=== PATIENT | male | born 2000 | race Caucasian/White ===

== ENCOUNTER 2024-08-19 09:08 | Emergency (ER) | payer OTHER ==
[2024-08-19] MEDS ORDERED: KETOROLAC 30 MG/ML INJ ONE (09:39)
[2024-08-19] MEDS ORDERED: ONDANSETRON 4 MG/2 ML VIAL ONE ×2 (09:39→15:43)
[2024-08-19] MEDS ORDERED: dexAMETHasone 10 MG/ML VIAL ONE (09:39)
[2024-08-19] MEDS ORDERED: NA CHLORIDE 0.9% 1,000 ML ONE (09:40)
[2024-08-19] MEDS ORDERED: MORPHINE 4 MG/ML SYR ONE ×2 (09:40→15:43)
[2024-08-19] MEDS ORDERED: DIAZEPAM 5 MG TABLET ONE (09:40)
[2024-08-19 10:03] LABS: Absolute Eosinophils 0.1 K/uL (0-0.5); Absolute Lymphocytes (CBC) 1.3 K/uL (0.7-4.9); Absolute Monocytes 0.5 K/uL (0.1-1.3); Absolute Neutrophil 5.1 K/uL (1.8-8.0); Basophils % 0.3 % (0-1.3); Hematocrit 43.5 % (39.6-49.0); Hemoglobin 14.9 g/dL (13.6-17.9); Lymphocytes % 18.8 % (15.3-44.8); MCH 30.4 pg (27.0-35.0); MCHC 34.3 g/dL (32.0-36.0); MCV 88.5 fL (80-100); MPV 9.1 fL (7.6-11.3); Monocytes % 7.2 % (3.3-12.3); Neutrophils % 71.7 % (41.7-73.7); Platelets 192 thou/uL (152-406); RBC Red Blood Cell Count 4.91 M/uL (4.33-5.43); Red Cell Distribution Width 12.8 % (12.1-15.2)
[2024-08-19 10:27] LABS: Albumin 4.2 g/dL (3.4-5.0); Albumin/Globulin Ratio 1.4 (1.1-1.8); Anion Gap 9.1 mEq/L (5.0-15.0); Bilirubin Total 0.4 mg/dL (0.2-1.0); Globulin 2.9 g/dL (2.3-3.5); Potassium 4.1 mEq/L (3.5-5.1); Protein, Total 7.1 g/dL (6.4-8.2)
--- NOTE | 2024-08-19 11:33 | RAD REPORT ---
EXAMINATION: Lumbar Spine Wo Con CLINICAL INDICATION: Male, 24 years old. low back pain TECHNIQUE: Multiplanar multisequence MR images were obtained of the lumbar spine without intravenous contrast. Unless otherwise specified, incidental findings do not require dedicated imaging follow-up. [id number]. COMPARISON: No prior exam. FINDINGS: For purposes of this dictation, it is assumed that there are 5 non rib-bearing lumbar type vertebrae, and the most caudal fully segmented lumbar vertebra is labeled L5. ALIGNMENT: The lumbar spine has normal alignment. BONE: Vertebral bodies are normal in height. There is a normal marrow signal pattern. CORD: No abnormal signal in the cord. The conus medullaris terminates at a normal level. The nerve ro ots of the cauda equina appear normal. SOFT TISSUE: The included paraspinal soft tissues and retroperitoneal structures are grossly normal. EVALUATION OF THE INDIVIDUAL LEVELS: L1-L2 :Disc is normal in height and signal intensity. No significant spinal canal or neural foraminal stenosis. L2-L3: Disc is normal in height and signal intensity. No significant spinal canal or neural foraminal stenosis. L3-L4: Disc is normal in height and signal intensity. No significant spinal canal or neural foraminal stenosis. L4-L5: Disc is normal in height and signal intensity. No significant spinal canal or neural foramina l stenosis. L5-S1: Left subarticular zone disc protrusion which effaces the epidural fat on the left and likely c ompresses the traversing left L5 nerve root. No central spinal stenosis. The neural foramina are adequate cervical. Mild facet hypertrophy. IMPRESSION: Left subarticular zone disc protrusion with effacement of the epidural fat at L5-S1 likely compresses the left S1 nerve root and presumably is the source of the patient's symptoms.
--- NOTE | 2024-08-19 12:03 | EDPHYS ---
Physician Documentation [facility] Name: Elia Archer Age: 24 yrs Sex: Male : 2000 Arrival Date: 08/19/2024 Time: 09:08 Bed 15 Private MD: Tyrese Anderson HPI: 08/19 10:02 This 24 yrs old Male presents to ER via Wheelchair with complaints of Back Pain - LOWER.roz 10:02 The patient presents with pain that is acute. The symptoms are located in the low back. roz Onset: The symptoms/episode began/occurred 3 day(s) ago. The pain does not radiate. Associated signs and symptoms: The patient has no apparent associated signs or symptoms. The problem was sustained playing sports. Modifying factors: The patient symptoms are alleviated by nothing, remaining still, the patient symptoms are aggravated by any movement. Severity of symptoms: At their worst the symptoms were. The patient has not experienced similar symptoms in the past. Historical: - Allergies: :43 No Known Allergies; iw - Home Meds: :43 None [Active]; iw - PMHx: :43 None; iw - PSHx: :43 None; iw - Immunization history:: Adult Immunizations not up to date. - Infectious Disease History:: Denies. - Social history:: Smoking status: Reported history of juuling and/or vaping. ROS: 10:04 Constitutional: Negative for fever, chills, and weight loss, Eyes: Negative for injury, roz pain, redness, and discharge, ENT: Negative for injury, pain, and discharge, Neck: Negative for injury, pain, and swelling, Cardiovascular: Negative for chest pain, palpitations, and edema, Respiratory: Negative for shortness of breath, cough, wheezing, and pleuritic chest pain, Abdomen/GI: Negative for abdominal pain, nausea, vomiting, diarrhea, and constipation, : Negative for injury, bleeding, discharge, and swelling, MS/Extremity: Negative for injury and deformity, Skin: Negative for injury, rash, and discoloration, Neuro: Negative for headache, weakness, numbness, tingling, and seizure, Psych: Negative for depression, anxiety, suicide ideation, homicidal ideation, and hallucinations, Allergy/Immunology: Negative for hives, rash, and allergies, Endocrine: Negative for neck swelling, polydipsia, polyuria, polyphagia, and marked weight changes, Hematologic/Lymphatic: Negative for swollen nodes, abnormal bleeding, and unusual bruising, 10:04 Back: Positive for injury or acute deformity, decreased range of motion, pain with movement, radiated pain, Exam: 10:04 Constitutional: This is a well developed, well nourished patient who is awake, alert, roz and in no acute distress. Head/Face: Normocephalic, atraumatic. Eyes: Pupils equal round and reactive to light, extra-ocular motions intact. Lids and lashes normal. Conjunctiva and sclera are non-icteric and not injected. Cornea within normal limits. Periorbital areas with no swelling, redness, or edema. ENT: Nares patent. No nasal discharge, no septal abnormalities noted. Tympanic membranes are normal and external auditory canals are clear. Oropharynx with no redness, swelling, or masses, exudates, or evidence of obstruction, uvula midline. Mucous membranes moist. Neck: Trachea midline, no thyromegaly or masses palpated, and no cervical lymphadenopathy. Supple, full range of motion without nuchal rigidity, or vertebral point tenderness. No Meningismus. Chest/axilla: Normal chest wall appearance and motion. Nontender with no deformity. No lesions are appreciated. Cardiovascular: Regular rate and rhythm with a normal S1 and S2. No gallops, murmurs, or rubs. Normal PMI, no JVD. No pulse deficits. Respiratory: Lungs have equal breath sounds bilaterally, clear to auscultation and percussion. No rales, rhonchi or wheezes noted. No increased work of breathing, no retractions or nasal flaring. Abdomen/GI: Soft, non-tender, with normal bowel sounds. No distension or tympany. No guarding or rebound. No evidence of tenderness throughout. Male : Normal genitalia with no discharge or lesions. Skin: Warm, dry with normal turgor. Normal color with no rashes, no lesions, and no evidence of cellulitis. MS/ Extremity: Pulses equal, no cyanosis. Neurovascular intact. Full, normal range of motion., bilateral aka Neuro: Awake and alert, GCS 15, oriented to person, place, time, and situation. Cranial nerves II-XII grossly intact. Motor strength 5/5 in all extremities. Sensory grossly intact. Cerebellar exam normal. Normal gait. Psych: Awake, alert, with orientation to person, place and time. Behavior, mood, and affect are within normal limits. 10:04 Back: pain, that is moderate, ROM is painful, normal spinal alignment noted, CVA tenderness, is absent, Vital Signs: 09:44 Resp 16; Pulse Ox 98% on R/A; Weight 68.04 kg; Height 5 ft. 11 in. ; Pain 4/10; iw 09:53 BP 141 / 58; Pulse 59; Resp 18; Pulse Ox 100% on R/A; Pain 9/10; ld1 09:53 Temp 97.5(TE); ld1 09:53 Weight 72.57 kg; ld1 09:53 Height 5 ft. 10 in. ; ld1 10:00 BP 123 / 78; Pulse 54; Resp 18; Pulse Ox 100% on R/A; ld1 11:00 BP 99 / 45; Pulse 51; Resp 18; Pulse Ox 99% on R/A; ld1 12:00 BP 109 / 49; Pulse 60; Resp 18; Pulse Ox 98% on R/A; ld1 12:50 BP 125 / 60; Pulse 73; Resp 18; Pulse Ox 99% on R/A; ld1 14:41 BP 126 / 70; Pulse 71; Resp 18; Pulse Ox 99% on R/A; ld1 09:44 Body Mass Index 20.92 (72.57 kg, 177.8 cm) iw 09:44 Pain Scale: Adult iw 09:53 Pain Scale: Adult ld1 MDM: 09:13 Medical Screening Exam initiated roz 10:05 Differential diagnosis: Fatigue Fracture ruptured disc, sprain, vertebral fracture. [facility] Data reviewed: vital signs, nurses notes, lab test result(s), radiologic studies, MRI. Consideration of Admission/Observation Escalation of care including admission/observation considered. I considered the following discharge prescriptions or medication management in the emergency department Medications were administered in the Emergency Department. See MAR. Independent interpretation of the following test(s) in the Emergency Department MRI: My interpretation is mri lumbar spine wo. Care significantly affected by the following chronic conditions: no hx. 08/19 09:16 Order name: CBC with Diff; Complete Time: 11:07 [facility] 08/19 09:16 Order name: CMP; Complete Time: 11: [facility] 08/19 09:16 Order name: UA Rfx Robin Cult if indicated; Complete Time: 12:17 roz 08/19 09:20 Order name: Lumbar Spine Wo Con; Complete Time: 11:55 EDMS Administered Medications: :53 Drug: NS 0.9% IV 1000 ml IV at 1000 ml once; to be given as a bolus over 60 minutes ld1 Route: IV; Rate: 1000 ml; Site: left antecubital; 11:00 Follow up: Response: No adverse reaction; IV Status: Completed infusion; IV Intake: ld1 1000ml 09:53 Drug: Ketorolac IVP 30 mg IVP once Route: IVP; Site: left antecubital; ld1 11:00 Follow up: Response: No adverse reaction ld1 09:53 Drug: Ondansetron IVP 8 mg IVP once; over 2 minutes Route: IVP; Site: left antecubital; ld1 11:00 Follow up: Response: No adverse reaction ld1 09:53 Drug: Diazepam PO 10 mg PO once Route: PO; ld1 11:00 Follow up: Response: No adverse reaction ld1 09:53 Drug: morphine IVP or IV 4 mg IVP once over 4 mins Route: IVP; Infused Over: 4 mins; ld1 Site: left antecubital; 11:00 Follow up: Response: No adverse reaction ld1 09:53 Drug: Decadron - Dexamethasone IVP 10 mg IVP once Route: IVP; Site: left antecubital; ld1 11:00 Follow up: Response: No adverse reaction ld1 15:29 Not Given (Patient Refused): Decadron - [id number] mg IVP once ld1 15:30 Drug: Ondansetron IVP 4 mg IVP once; VERBAL ORDER PER DR TAPIA Route: IVP; Site: ld1 left antecubital; 15:48 Follow up: Response: No adverse reaction ld1 15:30 Drug: morphine IVP or IV 4 mg IVP once over 4 mins; VERBAL ORDER PER DR TAPIA Route: ld1 IVP; Infused Over: 4 mins; Site: left antecubital; 15:49 Follow up: Response: No adverse reaction ld1 15:48 CANCELLED (Duplicate Order): morphineor iv 4 mg IVP once over 4 mins roz 15:48 CANCELLED (Duplicate Order): ondansetron 4 mg IVP once; over 2 minutes roz Disposition Summary: 08/19/24 12:02 Transfer Ordered Notes: Transfer Location: [facility] roz Reason: Higher level of care roz Condition: Stable roz Problem: new roz Symptoms: have improved roz Accepting Physician: TO [facility](08/19/24 15:49) ld1 Diagnosis - Intervertebral disc disorders with radiculopathy, lumbar region - SUBARTICULAR roz L5-S1 DISC PROTUSION, WITH EFFACEMENT - Low back pain - ACUTE roz Forms: - Medication Reconciliation Form roz - SBAR form roz Signatures: Dispatcher [employer] EDTyrese Alanis MD MD cha Williams, Irene, RN RN iw Jany Lechuga RN RN ld1 Corrections: (The following items were deleted from the chart) 15:35 12:02 TO [facility] roz ld1 15:48 15:48 morphine IVP or IV 4 mg IVP once over 4 mins ordered. roz roz 15:48 15:48 Ondansetron IVP 4 mg IVP once; over 2 minutes ordered. roz roz 15:49 15:35 TO [facility] ld1 ld1
--- NOTE | 2024-08-19 12:03 | ER ---
Nurse's Notes [facility] Name: Elia Archer Age: 24 yrs Sex: Male : 2000 Arrival Date: 08/19/2024 Time: 09:08 Bed 15 Private MD: Diagnosis: Intervertebral disc disorders with radiculopathy, lumbar region-SUBARTICULAR L5-S1 DISC PROTUSION, WITH EFFACEMENT;Low back pain-ACUTE Presentation: 08/19 09:38 Chief complaint: Patient states: has had back stiffness for a month , was playing basketball a week ago and twisted wrong , has had severe lower back pain radiating down both legs, left worse than right and weakness in legs since then , Forrest Shah sent to ER for evaluation. Coronavirus screen: At this time, the client does not indicate any symptoms associated with coronavirus-19. Ebola Screen: No symptoms or risks identified at this time. Initial Sepsis Screen: Does the patient meet any 2 criteria? No. Patient's initial sepsis screen is negative. Does the patient have a suspected source of infection? No. Patient's initial sepsis screen is negative. Risk Assessment: Do you want to hurt yourself or someone else? Patient reports no desire to harm self or others. 09:38 Method Of Arrival: Wheelchair iw 09:38 Acuity: WOO 2 iw Historical: - Allergies: 09:43 No Known Allergies; iw - Home Meds: 09:43 None [Active]; iw - PMHx: 09:43 None; iw - PSHx: 09:43 None; iw - Immunization history:: Adult Immunizations not up to date. - Infectious Disease History:: Denies. - Social history:: Smoking status: Reported history of juuling and/or vaping. Screenin:53 [facility] ED Fall Risk Assessment (Adult) History of falling in the last 3 months, ld1 including since admission No falls in past 3 months (0 pts) Confusion or Disorientation No (0 pts) Intoxicated or Sedated No (0 pts) Impaired Gait No (0 pts) Mobility Assist Device Used No (0 pt) Altered Elimination No (0 pt) Score/Fall Risk Level 0 - 2 = Low Risk Oriented to surroundings, Hourly rounding (assess needs \\T\\ fall precautionary measures) done. Abuse screen: Denies threats or abuse. Denies injuries from another. Nutritional screening: No deficits noted. Tuberculosis screening: No symptoms or risk factors identified. Assessment: 09:53 General: Appears in no apparent distress. uncomfortable, Behavior is calm, cooperative, ld1 appropriate for age. Pain: Complains of pain in low back area Pain does not radiate. Pain currently is 9 out of 10 on a pain scale. Quality of pain is described as throbbing, Pain began suddenly, Is continuous. Neuro: Level of Consciousness is awake, alert, obeys commands, Oriented to person, place, time, situation. Cardiovascular: Capillary refill < 3 seconds Patient's skin is warm and dry. Respiratory: Airway is patent Respiratory effort is even, unlabored. GI: Abdomen is flat, non-distended. : No signs and/or symptoms were reported regarding the genitourinary system. EENT: No signs and/or symptoms were reported regarding the EENT system. Derm: No signs and/or symptoms reported regarding the dermatologic system. Musculoskeletal: No signs and/or symptoms reported regarding the musculoskeletal system. 11:00 Reassessment: Patient appears in no apparent distress at this time. No changes from ld1 previously documented assessment. Patient and/or family updated on plan of care and expected duration. Pain level reassessed. 13:36 Reassessment: Patient appears in no apparent distress at this time. No changes from ld1 previously documented assessment. Patient and/or family updated on plan of care and expected duration. Pain level reassessed. 14:15 Reassessment: Attempted to call patient report to [facility] tower 18 room [id number] \\T\\ ld1 . Nurse reports unable to accept report at this time due to room being dirty. Notified nurse we were over 1 hour away from the medical center - Nurse states "Let me reiterate myself, we will not be accepting report the room is still dirty." Asked for nurse name - nurse hung up on me. Notified Desk tech to call transfer center and notify of delay in patient transport to [facility] per Jessica Khan, ER director. Vital Signs: 09:44 Resp 16; Pulse Ox 98% on R/A; Weight 68.04 kg; Height 5 ft. 11 in. ; Pain 4/10; iw 09:53 BP 141 / 58; Pulse 59; Resp 18; Pulse Ox 100% on R/A; Pain 9/10; ld1 09:53 Temp 97.5(TE); ld1 09:53 Weight 72.57 kg; ld1 09:53 Height 5 ft. 10 in. ; ld1 10:00 BP 123 / 78; Pulse 54; Resp 18; Pulse Ox 100% on R/A; ld1 11:00 BP 99 / 45; Pulse 51; Resp 18; Pulse Ox 99% on R/A; ld1 12:00 BP 109 / 49; Pulse 60; Resp 18; Pulse Ox 98% on R/A; ld1 12:50 BP 125 / 60; Pulse 73; Resp 18; Pulse Ox 99% on R/A; ld1 14:41 BP 126 / 70; Pulse 71; Resp 18; Pulse Ox 99% on R/A; ld1 09:44 Body Mass Index 20.92 (72.57 kg, 177.8 cm) iw 09:44 Pain Scale: Adult iw 09:53 Pain Scale: Adult ld1 ED Course: 09:11 Patient arrived in ED. cj3 09:12 Tyrese Salguero MD is Attending Physician. roz 09:31 Jany Lechuga, ELIZABET is Primary Nurse. ld1 09:41 Triage completed. iw 09:45 Inserted saline lock: 20 gauge in left antecubital area, using aseptic technique. Blood nh2 collected. Flushed with 10 mL NS. 09:49 CMP Sent. nh2 09:49 CBC with Diff Sent. nh2 09:53 No provider procedures requiring assistance completed. ld1 09:53 Patient has correct armband on for positive identification. Bed in low position. Call ld1 light in reach. Side rails up X2. Pulse ox on. NIBP on. Door closed. Noise minimized. Warm blanket given. 11:16 Lumbar Spine Wo Con In Process Unspecified. EDMS 12:[address] Salguero. bd 14:07 pt accepted in transfer to [facility] rm [id number] Caldwell admin approval given by brenda Terry. 15:32 Patient transferred, IV remains in place. ld1 15:35 Arm band placed on right wrist. ld1 Administered Medications: 09:53 Drug: NS 0.9% IV 1000 ml IV at 1000 ml once; to be given as a bolus over 60 minutes ld1 Route: IV; Rate: 1000 ml; Site: left antecubital; 11:00 Follow up: Response: No adverse reaction; IV Status: Completed infusion; IV Intake: ld1 1000ml 09:53 Drug: Ketorolac IVP 30 mg IVP once Route: IVP; Site: left antecubital; ld1 11:00 Follow up: Response: No adverse reaction ld1 09:53 Drug: Ondansetron IVP 8 mg IVP once; over 2 minutes Route: IVP; Site: left antecubital; ld1 11:00 Follow up: Response: No adverse reaction ld1 09:53 Drug: Diazepam PO 10 mg PO once Route: PO; ld1 11:00 Follow up: Response: No adverse reaction ld1 09:53 Drug: morphine IVP or IV 4 mg IVP once over 4 mins Route: IVP; Infused Over: 4 mins; ld1 Site: left antecubital; 11:00 Follow up: Response: No adverse reaction ld1 09:53 Drug: Decadron - Dexamethasone IVP 10 mg IVP once Route: IVP; Site: left antecubital; ld1 11:00 Follow up: Response: No adverse reaction ld1 15:29 Not Given (Patient Refused): Decadron - [id number] mg IVP once ld1 15:30 Drug: Ondansetron IVP 4 mg IVP once; VERBAL ORDER PER DR SALGUERO Route: IVP; Site: [facility] left antecubital; 15:48 Follow up: Response: No adverse reaction ld1 15:30 Drug: morphine IVP or IV 4 mg IVP once over 4 mins; VERBAL ORDER PER DR SALGUERO Route: ld1 IVP; Infused Over: 4 mins; Site: left antecubital; 15:49 Follow up: Response: No adverse reaction ld1 15:48 CANCELLED (Duplicate Order): morphineor iv 4 mg IVP once over 4 mins roz 15:48 CANCELLED (Duplicate Order): ondansetron 4 mg IVP once; over 2 minutes roz Medication: 09:53 VIS not applicable for this client. ld1 Intake: 11:00 IV: 1000ml; Total: 1000ml. ld1 Outcome: 12:02 ER care complete, transfer ordered by roz 15:31 Discharged to home ambulatory, ld1 15:31 Condition: stable 15:31 Instructed on the need for transfer, 15:35 Patient left the ED. ld1 15:49 Patient left the ED. ld1 Signatures: Dispatcher [employer] EDMS Mikki Graves Corey, MD MD cha Williams, Irene, RN RN iw Jany Lechuga RN RN ld1 Marty Suero, Amira Murillo 3
[2024-08-19 12:12] LABS: Specific Gravity 1.016 (1.005-1.030); Urine Bilirubin NEGATIVE (Negative); Urine Blood Negative (Negative); Urine Clarity Clear (Clear); Urine Color Light-Yellow (Yellow); Urine Glucose NEGATIVE (Negative); Urine Ketones NEGATIVE (Negative); Urine Microscopic Reflex YN NO UMIC; Urine Nitrite NEGATIVE (Negative); Urine Protein NEGATIVE (Negative); Urine Urobilinogen Normal (Normal); Urine pH 6.5 (5.0-7.0)
[2024-08-19 15:59] VITALS: TEMP 97.5
[2024-08-19 16:09] VITALS: O2SAT 99
[2024-08-19 16:10] VITALS: BP 126/70
== END 2024-08-19 15:49 | disposition short-term general hospital (02) ==
LOC: ER 09:08
DX: M51.17 Intervertebral disc disorders with radiculopathy, lumbosacral region (principal)
CPT/HCPCS: 85025; 36415; 81003; 80053; 72148; J1100; J2405 ×2; J7030; 96361; 96374; 96375; 99284